=== PATIENT | female | born 1980 | race Caucasian/White ===

== ENCOUNTER 2020-03-30 09:53 | Emergency (ER) | payer OTHER ==
[2020-03-30 10:00] VITALS: BP 105/70; PULSE 76; TEMP 98.8; BMI 27.6
--- NOTE | 2020-03-30 10:02 | PDOC ---
Rapid Medical Evaluation Chief Complaint: Vaginal Bleeding Medical Evaluation: 03/30/20 09:59 39 yo F , 7 weeks GA noticed vaginal spotting this am. denies f/c, sob, cp, abd pain, pelvic pain, back pain. has an OB appt 05/07/2020. taking vitamins. VSS speaking full sentences ambulatory A/P: Vaginal Bleeding in labs, bhcg, ua
[2020-03-30 10:50] LABS: BASO % 0.5 % (0-2.0); EOS % 0.4 % (0-4.5); HEMATOCRIT 39.9 % (32.4-45.2); LYMPH % 22.1 % (8-40); MCH 28.8 pg (25.7-33.7); MCHC 32.7 g/dl (32.0-36.0); MEAN PLT VOLUME 9.9 fl (7.5-11.1); MONO % 4.2 % (3.8-10.2); NEUT % 72.8 % (42.8-82.8); PLATELET COUNT 295 K/MM3 (134-434); RBC 4.53 M/mm3 (3.60-5.2); RDW 13.1 % (11.6-15.6); WHITE BLOOD COUNT 9.5 K/mm3 (4.0-10.0)
[2020-03-30 10:57] LABS: EPI CELLS 16 /uL (0-25.1); HYALINE CASTS 1 /uL (0-3.1); PH,URINE 8.5 (5.0-8.0); URINE APPEARANCE CLEAR; URINE BACTERIA 204 /uL (0-1359); URINE BILIRUBIN NEGATIVE (NEGATIVE); URINE COLOR YELLOW; URINE GLUCOSE (UA) NEGATIVE (NEGATIVE); URINE KETONE NEGATIVE (NEGATIVE); URINE LEUK ESTERASE TRACE (NEGATIVE); URINE NITRITE NEGATIVE (NEGATIVE); URINE PROTEIN NEGATIVE (NEGATIVE); URINE UROBILINOGEN 0.2 mg/dL (0.2-1.0); URINE WBC 4 /uL (0-25.8)
[2020-03-30] MEDS ORDERED: ACETAMINOPHEN INJECTION 100 ML IVPB ONE ×2 (11:21→11:29)
[2020-03-30 11:28] LABS: YEAST RARE (NEGATIVE)
[2020-03-30 11:29] LABS: URINE RBC 38.2 /uL (0-23.9)
[2020-03-30] MEDS ORDERED: ACETAMINOPHEN 500 MG TABLET (FP) PO ONE (11:33)
[2020-03-30] MEDS ORDERED: ACETAMINOPHEN 1000 MG/100 ML VIAL (NON FORMULARY) IVPB ONE (11:35)
[2020-03-30 11:36] LABS: ALBUMIN 3.5 g/dl (3.4-5.0); BILIRUBIN,TOTAL 0.4 mg/dL (0.2-1); BLOOD UREA NITROGEN 9.3 mg/dL (7-18); CREATININE 0.6 mg/dL (0.55-1.3); POTASSIUM 4.4 mmol/L (3.5-5.1); TOT PROT 6.9 g/dl (6.4-8.2)
[2020-03-30] MEDS ORDERED: SODIUM CHLORIDE 0.9% 500 ML INFUS.BAG IV ONE (11:44)
--- NOTE | 2020-03-30 11:52 | PDOC ---
History of Present Illness - General Chief Complaint: Vaginal Bleeding Stated Complaint: SPOTTING / 7WK PREG Time Seen by Provider: 03/30/20 11:15 - History of Present Illness Initial Comments: 03/30/20 11:50 39 yo F history of seasonal allergies, , 7 weeks GA noticed 1 episode of vaginal spotting " brownish" this am upon wiping after urinating. Denies vaginal bleeding at this time. Also complains of mild left-sided headache since yesterday. denies vision changes, weakness, f/c/n/v/d, sob, cp, abd pain, pelvic pain, back pain. has an OB appt 05/07/2020. taking vitamins. Did not take any pain medication today. States she had a transvaginal ultrasound 5 weeks ago showing she has an intrauterine . ROS: as above PE: GENERAL: well-appearing, NAD HEAD: NCAT EYES: Pupils equal, round and reactive to light, sclera anicteric, conjunctiva clear ENT: pharynx: no erythema, no exudate, uvula midline NECK: supple CHEST: nontender RESP: clear, no w/r/r CARDIO: rrr, no m/g/r ABD: +BS, soft, nontender, non distended : Pelvic deferred BACK: no midline spinal ttp, no CVAT EXTREMITIES: Normal range of motion, no edema NEUROLOGICAL: Normal speech, normal gait SKIN: Warm, Dry Past History - Medical History Allergies/Adverse Reactions: Allergies Allergy/AdvReac Type Severity Reaction Status Date / Time No Known Allergies Allergy Verified 03/30/20 10:00 COPD: No - Psycho-Social/Smoking History Smoking History: Never smoked Information on smoking cessation initiated: No - Substance Abuse Hx (Audit-C & DAST Scrn) How often the patient has a drink containing alcohol: Never Score: In Men: 4 or > Positive; In Women: 3 or > Positive: 0 Screen Result (Pos requires Nsg. Audit-10AR): Negative In the last yr the pt used illegal drug/Rx for NonMed reason: No Score: Yes response is considered Positive: 0 Screen Result (Positive result requires Nsg. DAST-10): Negative *Physical Exam - Vital Signs Last Vital Signs Temp Pulse Resp BP Pulse Ox 98.8 F 76 19 105/70 99 03/30/20 09:57 03/30/20 09:57 07/22/20 09:57 03/30/20 09:57 03/30/20 09:57 ED Treatment Course - LABORATORY CBC & Chemistry Diagram: 03/30/20 10:20 03/30/20 10:20 - ADDITIONAL ORDERS Additional order review: Laboratory Results 03/30/20 03/30/20 10:20 10:20 Sodium 139 Potassium 4.4 Chloride 107 Carbon Dioxide 23 Anion Gap 8 BUN 9.3 Creatinine 0.6 Est GFR (CKD-EPI)AfAm 134.96 Est GFR (CKD-EPI)NonAf 116.44 Random Glucose 78 Calcium 9.0 Total Bilirubin 0.4 AST 15 ALT 16 Alkaline Phosphatase 39 L Total Protein 6.9 Albumin 3.5 Beta HCG, Quant 338795.6 Urine Color Yellow Urine Appearance Clear Urine pH 8.5 H Ur Specific Ralph 1.015 Urine Protein Negative Urine Glucose (UA) Negative Urine Ketones Negative Urine Blood Trace Urine Nitrite Negative Urine Bilirubin Negative Urine Urobilinogen 0.2 Ur Leukocyte Esterase Trace Urine WBC (Auto) 4 Urine RBC (Auto) 38.2 Urine Casts (Auto) 1 U Epithel Cells (Auto) 16 Urine Bacteria (Auto) 204 Urine Yeast (Auto) Rare 03/30/20 10:20 RBC 4.53 MCV 88.0 MCHC 32.7 RDW 13.1 MPV 9.9 Neutrophils % 72.8 Lymphocytes % 22.1 Monocytes % 4.2 Eosinophils % 0.4 Basophils % 0.5 - RADIOLOGY Radiology Studies Ordered: Category Date Time Status TRANSVAGINAL US PREG [US] Stat Ultrasound 03/30/20 11:21 Ordered - Medications Given in the ED: ED Medications Discontinued Medications Generic Name Dose Route Start Last Admin Trade Name Freq PRN Reason Stop Dose Admin Acetaminophen 1,000 mg 03/30/20 11:33 03/30/20 11:48 Tylenol - PO 03/30/20 11:34 Not Given ONCE ONE Acetaminophen 1,000 mg 03/30/20 11:35 03/30/20 11:37 Ofirmev Injection - IVPB 03/30/20 11:36 1,000 mg ONCE ONE Administration Acetaminophen 100 mls @ 0 mls/hr 03/30/20 11:21 03/30/20 11:38 Ofirmev Injection - IVPB 03/30/20 11:22 Not Given .Q0M ONE As Directed Sodium Chloride 1,000 ml 03/30/20 11:44 03/30/20 11:49 Normal Saline - IV 03/30/20 11:45 1,000 ml ONCE ONE Administration Medical Decision Making - Medical Decision Making 03/30/20 11:51 39 yo F , 7 weeks GA noticed 1 episode of vaginal spotting this am. Complains of mild left-sided headache since yesterday. denies vision changes, weakness, f/c/n/v/d, sob, cp, abd pain, pelvic pain, back pain. has an OB appt 05/07/2020. taking vitamins. Did not take any pain medication today. [place] [facility] [place], IVF transvaginal US re assess 03/30/20 15:16 [facility] [place] 205447.6 Transvaginal ultrasound: single viable intrauterine gestation Patient feels better after IV hydration and acetaminophen Tolerating p.o. No vaginal bleeding while in the ED Advised to keep her OB appointment scheduled in 1 month Return precautions discussed Discharge - Discharge Information Problems reviewed: Yes Clinical Impression/Diagnosis: Vaginal bleeding during Condition: Stable Disposition: HOME - Admission No - Follow up/Referral - Patient Discharge Instructions Additional Instructions: Keep your OB appointment scheduled for May 07, 2020 Return to the emergency department if you develop abdominal pain, vaginal bleeding, fever, chills, or any worsening symptoms Continue to take your vitamins Remain hydrated - Post Discharge Activity
== END 2020-03-30 15:38 | disposition home or self-care (01) ==
LOC: JER 09:53
PROC: 3E0333Z Introduction of Anti-inflammatory into Peripheral Vein, Percutaneous Approach (ICD-10-PCS; principal; 2020-03-30)
PROC: 3E033GC Introduction of Other Therapeutic Substance into Peripheral Vein, Percutaneous Approach (ICD-10-PCS; 2020-03-30)
DX: O26.859 Spotting complicating pregnancy, unspecified trimester (principal)
CPT/HCPCS: 36415; 76815-TC; 80053; 81003; 84702; 85025; 86850; 86900; 86901; 87086; 87491; 87591; 99284-25; J0131

== ENCOUNTER 2020-04-09 12:58 | Emergency (ER) | payer OTHER ==
[2020-04-09] MEDS ORDERED: SODIUM CHLORIDE 1,000 ML IV STA (13:03)
--- NOTE | 2020-04-09 13:03 | PDOC ---
Rapid Medical Evaluation Time Seen by Provider: 04/09/20 13:00 Medical Evaluation: Allergies Allergy/AdvReac Type Severity Reaction Status Date / Time No Known Allergies Allergy Verified 03/30/20 10:00 04/09/20 13:01 I performed a brief in-person evaluation of this patient. Pt is a 40 y/o female who is 9 weeks gestation and woke up today with vaginal bleeding. She admits to some lower abdominal cramping. She states a similar problem happened a few weeks ago as well. She is currently on amoxicillin for a sinus infection. Pertinent physical exam findings: speaking in full sentences, walking without ataxia, no reproducible abd pain. I have ordered the following: labs, us, type and screen Patient to proceed to ED for further evaluation. Discharge Disposition - Diagnosis Vaginal bleeding during - Referrals - Patient Instructions - Post Discharge Activity
[2020-04-09 13:15] VITALS: TEMP 97.8; BMI 25.7
--- NOTE | 2020-04-09 13:33 | PDOC ---
History of Present Illness - General Chief Complaint: Vaginal Bleeding Stated Complaint: 9 W PREG/VAG BLEEDING Time Seen by Provider: 04/09/20 13:00 History Source: Patient Exam Limitations: No Limitations - History of Present Illness Initial Comments: 04/09/20 13:34 CHIEF COMPLAINT: Vaginal bleeding HISTORY OF PRESENT ILLNESS: This is a 40-year-old female LMP 02/04 who pr esents complaining of vaginal spotting and pelvic cramping since morning. She denies dysuria, fevers/chills, or any other symptoms. Vital signs on arrival are unremarkable. REVIEW OF SYSTEMS: GENERAL/CONSTITUTIONAL: No fever or chills. No weakness. HEAD, EYES, EARS, NOSE AND THROAT: No change in vision. No change in hearing. No sore throat. CARDIOVASCULAR: Reports chest pain. No shortness of breath. RESPIRATORY: Denies cough, hemoptysis. GENITOURINARY: See HPI. SKIN: No rash or lesions. NEUROLOGIC: No headache, vertigo, loss of consciousness, or change in strength/sensation. ALLERGIC/IMMUNOLOGIC: No hives or skin allergy. PHYSICAL EXAM: GENERAL: Awake, alert, and oriented to person/place/time. HEAD: No signs of trauma, normocephalic, atraumatic. EYES: PERRLA, EOMI, sclera anicteric, conjunctiva clear. LUNGS: No distress, speaks in full sentences, clear to auscultation bilaterally. HEART: Regular rate and rhythm, normal S1 and S2, no murmurs appreciated, per ipheral pulses normal and equal bilaterally. ABDOMEN: Soft, nontender, normoactive bowel sounds. No guarding, no rebound. No masses. EXTREMITIES: Normal sensation in fingers. Cap refill <2 sec. NEUROLOGICAL: Cranial nerves II through XII grossly intact. Normal speech, normal gait, no focal sensorimotor deficits. SKIN: Warm, Dry, normal turgor, no rashes or lesions noted. STEAM METER READER: Normal external exam. Cervix long, closed, posterior. Scant blood in vaginal vault. No adnexal tenderness. Past History - Medical History Allergies/Adverse Reactions: Allergies Allergy/AdvReac Type Severity Reaction Status Date / Time No Known Allergies Allergy Verified 04/09/20 13:15 COPD: No - Psycho-Social/Smoking History Smoking History: Never smoked - Substance Abuse Hx (Audit-C & DAST Scrn) How often the patient has a drink containing alcohol: Never Score: In Men: 4 or > Positive; In Women: 3 or > Positive: 0 Screen Result (Pos requires Nsg. Audit-10AR): Negative In the last yr the pt used illegal drug/Rx for NonMed reason: No Score: Yes response is considered Positive: 0 Screen Result (Positive result requires Nsg. DAST-10): Negative *Physical Exam - Vital Signs Last Vital Signs Temp Pulse Resp BP Pulse Ox 97.8 F 86 16 111/81 98 04/09/20 13:13 04/09/20 13:13 04/09/20 13:13 04/09/20 13:13 04/09/20 13:13 ED Treatment Course - LABORATORY CBC & Chemistry Diagram: 04/09/20 13:55 04/09/20 13:55 Medical Decision Making - Medical Decision Making 04/09/20 14:19 A/P: 40-year-old female with first trimester vaginal bleeding. 04/09/20 14:28 U/s reviewed: single, live IUP 9w 3d with heart activity. Possible small subchorionic hemorrhage. Patient referred to [address] [place] [address]. Followup instructions and return precautions reviewed. Discharge - Discharge Information Problems reviewed: Yes Clinical Impression/Diagnosis: Vaginal bleeding during Condition: Guarded Disposition: HOME - Follow up/Referral Referrals: Katie Looney CNM [Certified Nurse Ethylbenzene Cracking Supervisor] - - Patient Discharge Instructions Patient Printed Discharge Instructions: DI for Vaginal Bleeding During Additional Instructions: -You may have a small subchorionic hemorrhage, which needs to be followed up -Please contact the clinic at [address] [place] [address] for the earliest appointment -Return here for heavy bleeding (more than one pad per hour) or any other concerning symptoms - Post Discharge Activity
[2020-04-09 14:44] LABS: BASO % 0.3 % (0-2.0); EOS % 0.6 % (0-4.5); HEMATOCRIT 36.6 % (32.4-45.2); LYMPH % 23.1 % (8-40); MCH 28.9 pg (25.7-33.7); MCHC 32.8 g/dl (32.0-36.0); MEAN CELL VOLUME 88.2 fl (80-96); MEAN PLT VOLUME 9.7 fl (7.5-11.1); MONO % 5.7 % (3.8-10.2); NEUT % 70.3 % (42.8-82.8); PLATELET COUNT 298 K/MM3 (134-434); RBC 4.15 M/mm3 (3.60-5.2); RDW 13.1 % (11.6-15.6); WHITE BLOOD COUNT 9.7 K/mm3 (4.0-10.0)
[2020-04-09 15:15] LABS: ALBUMIN 3.3 g/dl (3.4-5.0); BILIRUBIN,TOTAL 0.3 mg/dL (0.2-1); CALCIUM 9.1 mg/dL (8.5-10.1); CREATININE 0.7 mg/dL (0.55-1.3); POTASSIUM 4.1 mmol/L (3.5-5.1); TOT PROT 6.5 g/dl (6.4-8.2)
[2020-04-09 15:42] VITALS: BP 119/70; PULSE 89
[2020-04-09 15:44] LABS: EPI CELLS 11 /uL (0-25.1); HYALINE CASTS 1 /uL (0-3.1); URINE APPEARANCE CLEAR; URINE BACTERIA 2 /uL (0-1359); URINE BILIRUBIN NEGATIVE (NEGATIVE); URINE COLOR YELLOW; URINE GLUCOSE (UA) NEGATIVE (NEGATIVE); URINE KETONE NEGATIVE (NEGATIVE); URINE LEUK ESTERASE NEGATIVE (NEGATIVE); URINE NITRITE NEGATIVE (NEGATIVE); URINE PROTEIN NEGATIVE (NEGATIVE); URINE RBC 47 /uL (0-23.9); URINE WBC 3 /uL (0-25.8)
== END 2020-04-09 15:42 | disposition home or self-care (01) ==
LOC: JER 12:58
PROC: 3E0337Z Introduction of Electrolytic and Water Balance Substance into Peripheral Vein, Percutaneous Approach (ICD-10-PCS; principal; 2020-04-09)
DX: O20.8 Other hemorrhage in early pregnancy (principal); Z3A.09 9 weeks gestation of pregnancy
CPT/HCPCS: 36415; 76801-TC; 80053; 81003; 84702; 85025; 86850; 86900; 86901; 87086; 99285-25

== ENCOUNTER 2020-04-17 09:30 | Emergency (ER) | payer OTHER ==
[2020-04-17 09:38] VITALS: BMI 25.8
--- NOTE | 2020-04-17 09:54 | PDOC ---
History of Present Illness - General Chief Complaint: Vaginal Bleeding Stated Complaint: 10 WK PREG / BLEED Time Seen by Provider: 04/17/20 09:51 History Source: Patient Exam Limitations: No Limitations - History of Present Illness Initial Comments: 04/17/20 10:38 Tanya Traore Dennis Dubose is a 40F @~10 weeks presenting with vaginal bleeding. Patient has been evaluated at [facility] ED last 2 weeks for vaginal bleeding, about once each week. TVUS performed prior shows IUP, blood type O+. Follows up with Megan DIAZ. This AM reports a large amount of bleeding in her clothes and bed, passed clot size of her hand in the bathroom. Bleeding stopped soon after, no longer bleeding by time of arrival. Denies SOB, chest pain, dizziness. Denies fever/chills, N/V, no diarrhea, mild lower abdominal pain, feels sore, did not take Tylenol. Denies MCCLURE and vision changes. No dysuria or hematuria. Denies discharge at this time. Here for evaluation of miscarriage. Takes PNV, no other meds. No other PMH. No PSH. Denies alcohol/drugs/tobacco. Past History - Medical History Allergies/Adverse Reactions: Allergies Allergy/AdvReac Type Severity Reaction Status Date / Time No Known Allergies Allergy Verified 04/17/20 09:37 COPD: No - Reproductive History Is Patient Now?: Yes - Psycho-Social/Smoking History Smoking History: Never smoked Review of Systems - Review of Systems Able to Perform ROS?: Yes Constitutional: No: Symptoms Reported HEENTM: No: Symptoms Reported Respiratory: No: Symptoms reported Cardiac (ROS): No: Symptoms Reported ABD/GI: Yes: Abdominal cramping. No: Constipated, Diarrhea, Nausea, Poor Appetite, Poor Fluid Intake, Vomiting : No: Burning, Dysuria, Discharge, Frequency, Flank Pain, Hematuria Musculoskeletal: No: Symptoms Reported Integumentary: No: Symptoms Reported Neurological: No: Symptoms reported Endocrine: No: Symptoms Reported Hematologic/Lymphatic: No: Symptoms Reported All Other Systems: Reviewed and Negative *Physical Exam - Vital Signs Last Vital Signs Temp Pulse Resp BP Pulse Ox 98 F 77 18 107/68 99 04/17/20 09:35 04/17/20 09:35 04/17/20 09:35 04/17/20 09:35 04/17/20 09:35 - Physical Exam General Appearance: Yes: Nourished, Appropriately Dressed, Other (resting comfortably). No: Apparent Distress HEENT: positive: EOMI, TAURUS, Normal ENT Inspection, Normal Voice, Symmetrical. negative: Scleral Icterus (R), Scleral Icterus (L), Pharyngeal Erythema, Tonsillar Exudate, Tonsillar Erythema Neck: positive: Normal Thyroid, Supple. negative: Tender, Lymphadenopathy (R), Lymphadenopathy (L), Tender lateral, Tender midline Respiratory/Chest: positive: Lungs Clear, Normal Breath Sounds. negative: Chest Tender, Respiratory Distress, Accessory Muscle Use, Crackles, Rales, Rhonchi, Stridor, Wheezing Cardiovascular: positive: Regular Rhythm, Regular Rate. negative: Murmur Female Pelvic Exam: positive: normal external exam, cervical os closed, adnexal tenderness (right), other (no bleeding, os closed with mild serosang, no blood or clots in vaginal vault). negative: CMT, vaginal bleeding Gastrointestinal/Abdominal: positive: Normal Bowel Sounds, Tender (R>L lower), Flat, Other (abdomen soft and non-gravid). negative: Hernia, Mass Musculoskeletal: positive: Normal Inspection. negative: CVA Tenderness, Vertebral Tenderness Extremity: positive: Normal Capillary Refill, Normal Inspection, Normal Range of Motion, Pelvis Stable. negative: Tender, Pedal Edema, Swelling Integumentary: positive: Normal Color, Dry, Warm. negative: Jaundice Neurologic: positive: Fully Oriented, Alert, Normal Mood/Affect, Normal Response, Motor Strength 5/5. negative: Sensory Deficit ED Treatment Course - LABORATORY CBC & Chemistry Diagram: 04/17/20 09:30 04/17/20 09:30 Medical Decision Making - Medical Decision Making 04/17/20 10:51 Patient is ~10 weeks with US confirmed IUP here for vaginal bleeding that has stopped, no symptomatic anemia. Pelvic shows closed os and mild serosang but no bleeding. Patient does not have acute abdomen and VSS. Given si ze of clot and closed os, likely complete miscarriage. Getting CBC/CMP/Beta quant and UA/UC for UTI eval. TVUS for eval IUP vs. miscarriage. 04/17/20 10:53 Labs notable for: - CBC WNL, no anemia - UA 2+ blood, no UTI 04/17/20 11:10 TVUS shows 11 weeks 3 days IUP, small subchorionic bleeding as noted on prior exam, FHR 161. OS closed, IUP confirmed. Stable for discharge home with COURIER DELIVERY DRIVER f/u. Discharge - Discharge Information Problems reviewed: Yes Clinical Impression/Diagnosis: Vaginal bleeding during Condition: Stable Disposition: HOME - Follow up/Referral Referrals: Abbey Aranda MD [Staff Physician] - Lan Friedman MD [Staff Physician] - - Patient Discharge Instructions Patient Printed Discharge Instructions: DI for Vaginal Bleeding During Additional Instructions: Today you were evaluated for vaginal bleeding. Your labs are normal. Your ultrasound shows your baby is 11 weeks and has a good heart rate. Your bleeding is concerning, but you and your baby are doing fine. Bleeding during the first trimester is normal, but you need to see an COURIER DELIVERY DRIVER for further care. At home, take Tylenol for pain as instructed on the bottle. Please follow-up with your COURIER DELIVERY DRIVER in the next week for further care. If you experience worsening bleeding over 3 pads in a few hours, worse pain, nausea, vomiting, or any other new or concerning symptoms, please return to the emergency room. Print Language: MACANESE - Post Discharge Activity
[2020-04-17 10:34] LABS: BASO % 0.3 % (0-2.0); EOS % 0.9 % (0-4.5); HEMATOCRIT 36.1 % (32.4-45.2); HEMOGLOBIN 11.8 GM/dL (10.7-15.3); LYMPH % 26.5 % (8-40); MCH 28.5 pg (25.7-33.7); MCHC 32.8 g/dl (32.0-36.0); MEAN CELL VOLUME 86.8 fl (80-96); MEAN PLT VOLUME 9.4 fl (7.5-11.1); NEUT % 66.3 % (42.8-82.8); PLATELET COUNT 292 K/MM3 (134-434); RBC 4.16 M/mm3 (3.60-5.2); RDW 13.4 % (11.6-15.6); WHITE BLOOD COUNT 8.6 K/mm3 (4.0-10.0)
[2020-04-17 10:41] LABS: EPI CELLS 15 /uL (0-25.1); HYALINE CASTS 0 /uL (0-3.1); PH,URINE 7.5 (5.0-8.0); URINE APPEARANCE CLEAR; URINE BACTERIA 76 /uL (0-1359); URINE BILIRUBIN NEGATIVE (NEGATIVE); URINE COLOR YELLOW; URINE GLUCOSE (UA) NEGATIVE (NEGATIVE); URINE KETONE NEGATIVE (NEGATIVE); URINE LEUK ESTERASE NEGATIVE (NEGATIVE); URINE NITRITE NEGATIVE (NEGATIVE); URINE PROTEIN NEGATIVE (NEGATIVE); URINE UROBILINOGEN 0.2 mg/dL (0.2-1.0); URINE WBC 2 /uL (0-25.8)
[2020-04-17 11:10] LABS: ALBUMIN 3.2 g/dl (3.4-5.0); BILIRUBIN,TOTAL 0.3 mg/dL (0.2-1); BLOOD UREA NITROGEN 11.3 mg/dL (7-18); CALCIUM 8.7 mg/dL (8.5-10.1); CREATININE 0.6 mg/dL (0.55-1.3); POTASSIUM 4.2 mmol/L (3.5-5.1); TOT PROT 6.2 g/dl (6.4-8.2)
[2020-04-17 11:18] VITALS: BP 110/83; PULSE 70; TEMP 98.2
--- NOTE | 2020-04-17 12:18 | PDOC ---
Documentation entered by Clau Burger SCRIBE, acting as scribe for Mali Lofton MD. Mali Lofton MD: This documentation has been prepared by the scribeTao Ana, SCRIBE, under my direction and personally reviewed by me in its entirety. I confirm that the documentation accurately reflects all work, treatment, procedures, and medical decision making performed by me. Attending Attestation - Resident Resident Name: AlbertoMarcos - ED Attending Attestation I have performed the following: I have examined & evaluated the patient, The case was reviewed & discussed with the resident, I agree w/resident's findings & plan, Exceptions are as noted - HPI HPI: 04/17/20 09:53 Patient is a 40 year old 10 weeks female with no significant past medical history who presents to the ED with vaginal bleeding x2 weeks. Patient stated there has been a significant amount of blood on her bed sheets and clothes. Patient also disclosed she passed a blood clot in the bathroom that was "the size of my hand" - stated the bleeding stopped shortly after and no bleeding upon ED arrival. Patient reports she did not attempt to,self medicate prior to ED arrival. Patient endorses: lower mild abdominal pain - stated she "feels sore" Patient denies: fever, chills, dizziness, headache, any vision changes, nausea, vomiting, SOB, chest pain, diarrhea, dysuria, hematuria, current discharge, alcohol intake, smoking, recreational drug use, or any other related symptoms. Allergies: NKDA - Physicial Exam PE: 04/17/20 10:38 General: comfortable appearing HEENT: NCAT Abdomen: soft, nt , no rebound, no guarding, no massess Neuro: awake, alert, resoponds appropriately to questions, speech fluent, face symmetric, no focal deficits - Medical Decision Making 04/17/20 10:39 40 yo F with likely spontaneous ab vs. threatened ab. Plan: -labs -pelvic ultrasound -reassess, anticipate d/c home with return precautions, recommend HAND RUG BRAIDER f/u This clinical encounter is taking place during a federal and state health care emergency attributable to the novel [place] Virus pandemic. The [place] of the Department of Health and Human Services has declared, pursuant to the Public Health Service Act 319F-3 (42 U.S.C. 247d-6d), that a covered persons activities related to medical countermeasures against COVID-19 will be immune from liability under Federal and State law. Discharge - Discharge Information Problems reviewed: Yes Clinical Impression/Diagnosis: Vaginal bleeding during Condition: Stable Disposition: HOME - Follow up/Referral Referrals: Abbey Aranda MD [Staff Physician] - Lan Friedman MD [Staff Physician] - - Patient Discharge Instructions Patient Printed Discharge Instructions: DI for Vaginal Bleeding During Additional Instructions: Today you were evaluated for vaginal bleeding. Your labs are normal. Your ultra sound shows your baby is 11 weeks and has a good heart rate. Your bleeding is concerning, but you and your baby are doing fine. Bleeding during the first trimester is normal, but you need to see an SERVICE CENTER SPECIALIST for further care. At home, take Tylenol for pain as instructed on the bottle. Please follow-up with your SERVICE CENTER SPECIALIST in the next week for further care. If you experience worsening bleeding over 3 pads in a few hours, worse pain, nausea, vomiting, or any other new or concerning symptoms, please return to the emergency room. Print Language: GUINEAN - Post Discharge Activity
[2020-04-17 14:35] LABS: URINE RBC 92.4 /uL (0-23.9)
== END 2020-04-17 11:18 | disposition home or self-care (01) ==
LOC: JER 09:30
DX: O20.9 Hemorrhage in early pregnancy, unspecified (principal); Z3A.10 10 weeks gestation of pregnancy
CPT/HCPCS: 36415; 76801-TC; 80053; 81003; 84702; 85025; 87086; 99284-25

== ENCOUNTER 2020-11-07 05:55 | Inpatient (IN) | payer OTHER ==
[2020-11-07 06:28] VITALS: BMI 34.0
[2020-11-07] MEDS ORDERED: ELECTROLYTE-148 SOLN 500 ML IV ONE ×3 (06:30→08:24)
[2020-11-07] MEDS ORDERED: CITRIC ACID/SODIUM CITRATE 30 ML UNIT-DOSE CUP PO ONE (06:30)
[2020-11-07 06:37] LABS: BASO % 0.6 % (0-2.0); EOS % 0.9 % (0-4.5); HEMATOCRIT 37.8 % (32.4-45.2); HEMOGLOBIN 12.7 GM/dL (10.7-15.3); LYMPH % 24.4 % (8-40); MCH 27.8 pg (25.7-33.7); MCHC 33.6 g/dl (32.0-36.0); MEAN CELL VOLUME 82.6 fl (80-96); MEAN PLT VOLUME 10.2 fl (7.5-11.1); MONO % 5.9 % (3.8-10.2); NEUT % 68.2 % (42.8-82.8); PLATELET COUNT 312 K/MM3 (134-434); RBC 4.57 M/mm3 (3.60-5.2)
[2020-11-07 06:46] LABS: INR 0.97 (0.83-1.09); PROTHROMBIN TIME (PATIENT) 11.9 SEC (9.7-13.0)
[2020-11-07 06:48] LABS: ACTIVATED PTT 27.8 SECONDS (25.2-36.5)
[2020-11-07 06:58] LABS: POTASSIUM 4.5 mmol/L (3.5-5.1)
[2020-11-07 06:59] LABS: CALCIUM 9.1 mg/dL (8.5-10.1)
[2020-11-07 07:00] LABS: BLOOD UREA NITROGEN 11.7 mg/dL (7-18)
[2020-11-07 07:03] LABS: CREATININE 0.6 mg/dL (0.55-1.3)
[2020-11-07] MEDS ORDERED: morphine SULFATE/PF 0.5 MG/ML (2cc Syringe - QUVA) SPIN ONE (07:54)
[2020-11-07] MEDS ORDERED: ONDANSETRON 4 MG/2 ML VIAL IVPUSH PRN (07:54)
[2020-11-07] MEDS ORDERED: IBUPROFEN 600 MG TABLET (FP) PO PRN (07:54)
[2020-11-07] MEDS ORDERED: OXYTOCIN 20 UNITS in 0.9% NS 20 UNIT/1,000 ML INFUS.BAG IV ONE ×2 (08:06→10:43)
[2020-11-07] MEDS ORDERED: PHENYLEPHRINE HCL 10 MG/1 ML SINGLE DOSE VIAL ONE (08:08)
[2020-11-07] MEDS ORDERED: EPINEPHrine 1:10,000 (P-F SYR) 1 MG/10 ML DISP.SYRIN ONE (08:08)
[2020-11-07] MEDS ORDERED: morphine SULFATE/Preservative Free 0.5 MG/ML (1cc Syringe) ONE (08:08)
[2020-11-07] MEDS ORDERED: ePHEDrine SULFATE 50 MG/1 ML AMPULE ONE (08:08)
[2020-11-07] MEDS ORDERED: PROPOFOL 20 ML ONE (08:10)
[2020-11-07] MEDS ORDERED: DEXAMETHASONE SOD PHOSPHATE 4 MG/1 ML VIAL ONE (08:46)
[2020-11-07] MEDS ORDERED: KETOROLAC TROMETHAMINE 30 MG/1 ML VIAL ONE (08:46)
[2020-11-07] MEDS ORDERED: ONDANSETRON 4 MG/2 ML VIAL ONE (08:46)
[2020-11-07] MEDS: OXYTOCIN 20 UNITS in 0.9% NS 20 UNIT/1,000 ML INFUS.BAG IV SCH (09:30)
[2020-11-07] MEDS ORDERED: oxyCODONE HCL 5 MG TABLET PO PRN (09:42)
[2020-11-07] MEDS ORDERED: METHYLERGONOVINE MALEATE 0.2 MG/1 ML AMP IM PRN (09:42)
[2020-11-07] MEDS: ELECTROLYTE-148 SOLN 1,000 ML IV SCH (10:33)
[2020-11-07] MEDS ORDERED: IBUPROFEN 800 MG/8 ML IJ IVPB PRN (23:29)
[2020-11-08] MEDS: OXYTOCIN 20 UNITS in 0.9% NS 20 UNIT/1,000 ML INFUS.BAG IV SCH ×2 (05:51→20:29)
[2020-11-08 09:16] LABS: BASO % 0.5 % (0-2.0); EOS % 0.5 % (0-4.5); HEMATOCRIT 32.3 % (32.4-45.2); HEMOGLOBIN 10.7 GM/dL (10.7-15.3); LYMPH % 21.6 % (8-40); MCH 27.6 pg (25.7-33.7); MEAN CELL VOLUME 83.5 fl (80-96); MEAN PLT VOLUME 10.1 fl (7.5-11.1); MONO % 5.3 % (3.8-10.2); NEUT % 72.1 % (42.8-82.8); PLATELET COUNT 249 K/MM3 (134-434); RBC 3.87 M/mm3 (3.60-5.2); RDW 16.1 % (11.6-15.6); WHITE BLOOD COUNT 12.8 K/mm3 (4.0-10.0)
[2020-11-08] MEDS ORDERED: BISACODYL 10 MG SUPP.RECT RC PRN (09:44)
[2020-11-08] MEDS: IBUPROFEN 600 MG TABLET (FP) PO PRN ×3 (10:56→20:30)
[2020-11-08] MEDS: ACETAMINOPHEN 325 MG TABLET (FP) PO PRN ×3 (10:57→20:29)
[2020-11-08] MEDS: SIMETHICONE 80 MG TAB.CHEW (FP) PO PRN ×3 (10:57→20:30)
[2020-11-08] MEDS: ELECTROLYTE-148 SOLN 1,000 ML IV SCH (20:29)
[2020-11-09] MEDS: ACETAMINOPHEN 325 MG TABLET (FP) PO PRN ×4 (02:32→20:49)
[2020-11-09] MEDS: SIMETHICONE 80 MG TAB.CHEW (FP) PO PRN ×4 (02:32→20:48)
[2020-11-09] MEDS: IBUPROFEN 600 MG TABLET (FP) PO PRN ×4 (02:32→20:48)
[2020-11-09] MEDS: ELECTROLYTE-148 SOLN 1,000 ML IV SCH (19:42)
[2020-11-09] MEDS: OXYTOCIN 20 UNITS in 0.9% NS 20 UNIT/1,000 ML INFUS.BAG IV SCH (19:42)
[2020-11-10] MEDS: ACETAMINOPHEN 325 MG TABLET (FP) PO PRN ×2 (01:27→08:35)
[2020-11-10] MEDS: IBUPROFEN 600 MG TABLET (FP) PO PRN ×2 (01:28→08:36)
[2020-11-10 08:23] LABS: BASO % 0.6 % (0-2.0); EOS % 4.5 % (0-4.5); HEMATOCRIT 35.5 % (32.4-45.2); HEMOGLOBIN 11.5 GM/dL (10.7-15.3); LYMPH % 25.6 % (8-40); MCH 27.2 pg (25.7-33.7); MCHC 32.4 g/dl (32.0-36.0); MONO % 5.7 % (3.8-10.2); NEUT % 63.6 % (42.8-82.8); PLATELET COUNT 322 K/MM3 (134-434); RBC 4.23 M/mm3 (3.60-5.2); RDW 16.5 % (11.6-15.6); WHITE BLOOD COUNT 8.5 K/mm3 (4.0-10.0)
[2020-11-10] MEDS: SIMETHICONE 80 MG TAB.CHEW (FP) PO PRN (08:35)
[2020-11-10 09:18] VITALS: BP 133/90; PULSE 75; TEMP 98.9
== END 2020-11-10 13:10 | disposition home or self-care (01) | DRG 540 ==
LOC: JLDR 05:55 → J3W 10:46
PROVIDERS: ADMIT Obstetrics & Gynecology; ATTEND Obstetrics & Gynecology
PROC: 10D00Z1 Extraction of Products of Conception, Low, Open Approach (ICD-10-PCS; principal; 2020-11-07)
PROC: 0UL70ZZ Occlusion of Bilateral Fallopian Tubes, Open Approach (ICD-10-PCS; 2020-11-07)
DX: O82 Encounter for cesarean delivery without indication (principal); Z37.0 Single live birth; Z30.2 Encounter for sterilization; Z3A.39 39 weeks gestation of pregnancy
CPT/HCPCS: 36415; 80048; 85025; 85610; 85730; 86780; 86850; 86900; 86901; 88302-TC; 88307-TC

== ENCOUNTER 2023-07-02 20:29 | Emergency (ER) | payer OTHER ==
[2023-07-02 20:34] VITALS: BP 126/87; PULSE 74; RESP 18; TEMP 98.2; BMI 28.5
[2023-07-02 22:44] LABS: EPI CELLS 13 /uL (0-25.1); HYALINE CASTS 0 /uL (0-3.1); URINE APPEARANCE CLEAR; URINE BACTERIA 150 /uL (0-1359); URINE BILIRUBIN NEGATIVE (NEGATIVE); URINE COLOR YELLOW; URINE GLUCOSE (UA) NEGATIVE (NEGATIVE); URINE KETONE NEGATIVE (NEGATIVE); URINE LEUK ESTERASE NEGATIVE (NEGATIVE); URINE NITRITE NEGATIVE (NEGATIVE); URINE PROTEIN NEGATIVE (NEGATIVE); URINE RBC 35 /uL (0-23.9); URINE WBC 4 /uL (0-25.8)
== END 2023-07-03 00:10 | disposition home or self-care (01) ==
LOC: JER 20:29
DX: K62.89 Other specified diseases of anus and rectum (principal)
CPT/HCPCS: 81003; 82272; 84703; 87086; 99283-25